=== PATIENT | male | born 1940 | race Caucasian/White ===

== ENCOUNTER 2018-05-19 22:27 | Inpatient (IN) | payer OTHER, BC ==
[~2018-05-19] VITALS: Ht 167.6 cm; Wt 77.2 kg
[2018-05-19 22:32] VITALS: Ht 167.6 cm; Wt 77.2 kg
[2018-05-19 23:09] LABS: BASOPHIL % 2.8 % (0-2); PLATELET COUNT 416 x10^3mcL (130-400); RED CELL DISTRIBUTION WIDTH 15.7 % (11.5-14.5)
[2018-05-19 23:11] LABS: CALCIUM 8.2 mg/dL (8.5-10.1); CARBON DIOXIDE 23.5 mmol/L (21-32); CHLORIDE SERUM 108 mmol/L (98-107); CREATININE SERUM 1.7 mg/dL (0.7-1.3); GLUCOSE SERUM 136 mg/dL (74-106); POTASSIUM SERUM 5.1 mmol/L (3.5-5.1); SODIUM SERUM 139 mmol/L (136-145)
[2018-05-19 23:16] LABS: ALKALINE PHOSPHATASE 74 U/L (46-116); ALT/SGPT 15 U/L (16-63); AST/SGOT 16 U/L (15-37); BILIRUBIN TOTAL 0.34 mg/dL (0.20-1.00)
[2018-05-19 23:23] LABS: ALBUMIN 1.7 g/dL (3.4-5.0); TOTAL PROTEIN, SERUM 5.8 g/dL (6.4-8.2)
[2018-05-20] VITALS (11 sets, daily range): BP systolic 66–102; BP diastolic 45–65
[2018-05-20 00:10] LABS: UA SPECIFIC GRAVITY >=1.030 (1.005-1.035); microscopic required? YES; urine erythrocyte NEGATIVE (NEGATIVE)
[2018-05-20] MEDS ORDERED: LIPI20 PO (01:23)
[2018-05-20] MEDS ORDERED: NATURE'S BLEND F1 MG PO (01:23)
[2018-05-20] MEDS ORDERED: MIRTAZAPINE15 M2 PO (01:23)
[2018-05-20] MEDS ORDERED: PROCTOSOL-HC2.5% RC ×2 (01:24→01:25)
[2018-05-20] MEDS ORDERED: BACITRACIN ZINC OP (01:24)
[2018-05-20] MEDS ORDERED: MIDODRINE HCL5 M1 PO (01:25)
[2018-05-20] MEDS ORDERED: VOLTAREN100 GM TP (01:26)
[2018-05-20] MEDS ORDERED: APRISO0.375 G1 PO (01:27)
[2018-05-20] MEDS ORDERED: FLECTOR1.3% TOP (01:27)
[2018-05-20] MEDS ORDERED: PROA PO (01:28)
[2018-05-20] MEDS ORDERED: BUSPIRONE HCL5 MG PO (01:28)
[2018-05-20] MEDS ORDERED: GOOD SENSE ASPI81 M3 PO (01:28)
[2018-05-20] MEDS ORDERED: PANTOPRAZOLE SO40 M1 PO (01:29)
[2018-05-20] MEDS ORDERED: DONEPEZIL HYDROC5 M3 PO (01:29)
[2018-05-20] MEDS ORDERED: QUEP PO (01:29)
[2018-05-20] MEDS ORDERED: REMEDY CALAZIME4 GM TP (01:30)
[2018-05-20 01:31] LABS: MAGNESIUM 2.2 mg/dL (1.8-2.4); PHOSPHOROUS 3.8 mg/dL (2.5-4.9)
[2018-05-20 01:32] LABS: CHOLESTEROL/HDL RATIO 2.6
[2018-05-20 01:40] LABS: T3 TOTAL 0.89 ng/mL
[2018-05-20 01:43] LABS: FREE T4 1.17 ng/dL (0.76-1.46); FREE THYROXINE INDEX 2.3 ug/dL (1.4-4.5); T4(THYROXINE) 5.9 ug/dL (4.7-13.3)
[2018-05-20 03:14] LABS: BASOPHIL % 1.5 % (0-2); RED CELL DISTRIBUTION WIDTH 14.3 % (11.5-14.5)
[2018-05-20 03:16] LABS: CALCIUM 8.6 mg/dL (8.5-10.1); CARBON DIOXIDE 24.3 mmol/L (21-32); CHLORIDE SERUM 109 mmol/L (98-107); CREATININE SERUM 1.7 mg/dL (0.7-1.3); GLUCOSE SERUM 118 mg/dL (74-106)
[2018-05-20 03:20] LABS: PLATELET COUNT 408 x10^3mcL (130-400)
[2018-05-20 03:35] LABS: SODIUM SERUM 136 mmol/L (136-145)
[2018-05-20 03:48] LABS: POTASSIUM SERUM 5.6 mmol/L (3.5-5.1)
[2018-05-20 11:48] LABS: CALCIUM 7.9 mg/dL (8.5-10.1); CARBON DIOXIDE 21.4 mmol/L (21-32); CHLORIDE SERUM 106 mmol/L (98-107); CREATININE SERUM 1.6 mg/dL (0.7-1.3); GLUCOSE SERUM 117 mg/dL (74-106); POTASSIUM SERUM 4.4 mmol/L (3.5-5.1); SODIUM SERUM 137 mmol/L (136-145)
[2018-05-21 06:10] VITALS: BP 91/61
[2018-05-21 06:37] LABS: PLATELET COUNT 263 x10^3mcL (130-400)
[2018-05-21 07:07] LABS: BASOPHIL % 0 % (0-2)
[2018-05-21 07:28] LABS: ALKALINE PHOSPHATASE 52 U/L (46-116); ALT/SGPT 15 U/L (16-63); AST/SGOT 20 U/L (15-37); CALCIUM 7.9 mg/dL (8.5-10.1); CARBON DIOXIDE 21.8 mmol/L (21-32); CHLORIDE SERUM 113 mmol/L (98-107); CREATININE SERUM 1.2 mg/dL (0.7-1.3); GLUCOSE SERUM 130 mg/dL (74-106); MAGNESIUM 2.1 mg/dL (1.8-2.4); PHOSPHOROUS 4.2 mg/dL (2.5-4.9); POTASSIUM SERUM 3.8 mmol/L (3.5-5.1); SODIUM SERUM 143 mmol/L (136-145)
[2018-05-21 07:30] LABS: ALBUMIN 1.5 g/dL (3.4-5.0); TOTAL PROTEIN, SERUM 4.5 g/dL (6.4-8.2)
[2018-05-21 09:26] VITALS: BP 99/61
[2018-05-21 13:05] VITALS: BP 95/62
[2018-05-21 17:23] LABS: PLATELET COUNT 281 x10^3mcL (130-400)
[2018-05-21 17:24] LABS: BASOPHIL % 0 % (0-2); RED CELL DISTRIBUTION WIDTH 16.2 % (11.5-14.5)
[2018-05-21 17:29] LABS: CALCIUM 8.4 mg/dL (8.5-10.1); CARBON DIOXIDE 20.9 mmol/L (21-32); CHLORIDE SERUM 111 mmol/L (98-107); CREATININE SERUM 1.3 mg/dL (0.7-1.3); GLUCOSE SERUM 191 mg/dL (74-106); POTASSIUM SERUM 4.1 mmol/L (3.5-5.1); SODIUM SERUM 139 mmol/L (136-145)
[2018-05-21 17:42] VITALS: BP 107/50
[2018-05-21 20:51] VITALS: BP 90/57
[2018-05-22 04:45] VITALS: BP 93/57
[2018-05-22 06:38] LABS: PLATELET COUNT 297 x10^3mcL (130-400)
[2018-05-22 06:43] LABS: RED CELL DISTRIBUTION WIDTH 16.6 % (11.5-14.5)
[2018-05-22 07:02] LABS: CALCIUM 8.6 mg/dL (8.5-10.1); CARBON DIOXIDE 22.9 mmol/L (21-32); CHLORIDE SERUM 113 mmol/L (98-107); CREATININE SERUM 1.2 mg/dL (0.7-1.3); GLUCOSE SERUM 114 mg/dL (74-106); POTASSIUM SERUM 5.2 mmol/L (3.5-5.1); SODIUM SERUM 141 mmol/L (136-145)
[2018-05-22 09:43] VITALS: BP 107/62
[2018-05-22] MEDS ORDERED: AZU500 PO (12:14)
[2018-05-22] MEDS ORDERED: VANCOCIN125 MG PO (12:14)
[2018-05-22] MEDS ORDERED: FLA500 PO (12:15)
[2018-05-22 12:36] LABS: BAND NEUTROPHIL 2 % (0-10); BASOPHIL 0 % (0-2); MONOCYTE 1 % (0-7); SEGMENTED NEUTROPHILS 96 % (37-75)
[2018-05-22 12:37] LABS: PLATELET MORPHOLOGY PLATELETS NORMAL; rbc morphology (normal/abnorm) ABNORMAL (NORMAL)
[2018-05-22 12:38] VITALS: BP 92/57
[2018-05-22 14:34] VITALS: BP 92/57
== END 2018-05-22 16:34 | DRG 871 ==
LOC: ED 22:27 → DU 05-20 00:57
PROVIDERS: Emergency Medicine; Internal Medicine
DX: A41.9 Sepsis, unspecified organism (principal); E43 Unspecified severe protein-calorie malnutrition; G93.41 Metabolic encephalopathy; N17.0 Acute kidney failure with tubular necrosis; A04.71 Enterocolitis due to Clostridium difficile, recurrent; K51.90 Ulcerative colitis, unspecified, without complications; E87.2 Acidosis; R65.20 Severe sepsis without septic shock; G30.9 Alzheimer's disease, unspecified; F02.80 Dementia in other diseases classified elsewhere, unspecified severity, without behavioral disturbance, psychotic disturbance, mood disturbance, and anxiety; I10 Essential (primary) hypertension; D63.8 Anemia in other chronic diseases classified elsewhere; E78.5 Hyperlipidemia, unspecified; Z68.26 Body mass index [BMI] 26.0-26.9, adult
CPT/HCPCS: 36600; 82962; 83880; 84439; 87046; 87046-59; 94150; J1720; J1956; J3490; J7030; J7620; P9047; Q0092